=== PATIENT | male | born 1975 | race Caucasian/White ===

== ENCOUNTER 2016-08-26 15:08 | Emergency (ER) | payer OTHER ==
--- NOTE | ~2016-08-26 | CR94 ---
[facility] A Service of [facility] & [facility] RADIOLOGY TEXT RESULTS PATIENT: JERZY PRADHAN LOCATION: CFTX : 75 UNIT #: [id number] AGE: [address]: Angela Grey APRN SEX: M ORDER DR: [id number] [facility] [address] [place], [place] [address] [id number] MR#: [id number] Acc #: [id number] NAME: JERZY PRADHAN : 1975 SEX: M STUDY DATE/TIME: 08/26/2016 14:19 UNIT: [facility] ROOM: STUDY DESCRIPTION: CR Elbow Min 3 Views Rt Attending Physician: Angela Grey A.P.R.N. Ordering Physician: Ed Doctor [id number] [facility] Primary Care Physician: Andrey Haywood M.D. MEDICAL IMAGING REPORT This report is preliminary unless electronic signature is present EXAM Right elbow 3 views HISTORY Elbow pain for 3 days. Hit elbow on door frame. FINDINGS AP and lateral examination of the elbow shows satisfactory articulation of the humerus with the proximal radius and ulna. There is no identifiable fracture, dislocation, joint effusion, or radiopaque foreign body in the soft tissues. IMPRESSION Normal right elbow. Dictated by... Stephen Guillen M.D. THIS IS AN ELECTRONICALLY VERIFIED REPORT Stephen Guillen M.D. at 08/26/2016 11:02 PM NATALIE/edna TD: 08/26/2016 15:51 JOB #: [id number] MEDICAL IMAGING REPORT Page 1 of 1 COPY
== END 2016-08-26 15:35 | disposition home or self-care (01) ==
LOC: CFTX 15:08
DX: M25.521 Pain in right elbow (principal); F17.210 Nicotine dependence, cigarettes, uncomplicated
CPT/HCPCS: 73080; 99283